=== PATIENT | female | born 1955 ===

== ENCOUNTER 2017-02-01 07:25 | Day surgery (SDC) | payer BC ==
[2017-01-26 08:37] VITALS: BMI 19.4
[2017-02-01] MEDS ORDERED: Propofol 10 mg/ml Inj (20 ML) ONE ×2 (09:21→09:52)
[2017-02-01] MEDS ORDERED: Sodium Chloride 0.9% 1,000 ML IV SCH (10:15)
[2017-02-01 10:27] VITALS: TEMP 98
[2017-02-01 11:53] VITALS: BP 138/68; PULSE 63; RESP 16; O2SAT 100
== END 2017-02-01 12:14 | disposition home or self-care (01) ==
LOC: ENDO 07:25
PROVIDERS: ATTEND Internal Medicine Gastroenterology
DX: Z12.11 Encounter for screening for malignant neoplasm of colon (principal); K56.2 Volvulus; K64.8 Other hemorrhoids
CPT/HCPCS: 45378; J2704; J7040 ×2